=== PATIENT | female | born 1935 ===

== ENCOUNTER 2018-10-07 05:50 | Day surgery (SDC) | payer OTHER ==
[~2018-10-07 05:50] MED LIST: ARICEPT5 MG PO; REQUIP1 MG PO
[2018-10-07] MEDS ORDERED: ALEVE220 M1 PO (14:46)
[2018-10-07] MEDS ORDERED: DUI500 PO (14:46)
[2018-10-07] MEDS ORDERED: ULTRACET PO (14:46)
== END 2018-10-07 19:10 | disposition home or self-care (01) ==
LOC: CIR.AMB 05:50
DX: S52.572A Other intraarticular fracture of lower end of left radius, initial encounter for closed fracture (principal)
CPT/HCPCS: 25609; 20902; C1776